=== PATIENT | male | born 1950 | race Caucasian/White ===

== ENCOUNTER 2022-04-25 00:28 | Emergency (ER) | payer MEDICARE, OTHER ==
[~2022-04-25] VITALS: Ht 177.8 cm; Wt 104.5 kg
[2022-04-25] VITALS (13 sets, daily range): BP systolic 89–145; BP diastolic 60–78
[2022-04-25] MEDS ORDERED: TOPROL XL100 MG PO (02:13)
[2022-04-25] MEDS ORDERED: XARELTO10 MG PO (02:14)
[2022-04-25] MEDS ORDERED: TAMSULOSIN HCL0.4 MG PO (02:14)
[2022-04-25] MEDS ORDERED: ATORVASTATIN CA20 MG PO (02:15)
[2022-04-25 02:18] LABS: BASO% 0.3 % (0-3); EOS% 0.7 % (0-8); HEMATOCRIT 45.7 % (39.0-50.0); HEMOGLOBIN 15.6 g/dl (14.0-18.0); IMMATURE GRANULOCYTES 0.3 % (0.0-5.0); LYMPH% 6.5 % (15-41); MEAN CELL VOLUME 92.9 fL CALC (80.0-100.0); MEAN CORPUSCULAR HGB 31.7 pG CALC (26.0-32.0); MEAN CORPUSCULAR HGB CONC 34.1 g/dL CAL (32.0-36.0); MONO% 4.9 % (2-13); NEUT# 8.98 thou/uL (1.82-7.42); NEUT% 87.3 % (42-76); RED BLOOD COUNT 4.92 mill/uL (4.70-6.10)
[2022-04-25 02:30] LABS: ALBUMIN 4.4 g/dL (3.2-5.0); ALKALINE PHOSPHATASE 98 u/l (38-126); AMYLASE 77 u/l (30-110); ANION GAP 13 (6-22 (CALC)); BILIRUBIN, TOTAL 0.8 mg/dL (0.2-1.3); BUN 22 mg/dL (8-23); BUN/CREATININE RATIO 15 (12-20 (CALC)); CARBON DIOXIDE 22 mmol/l (22-30); CHLORIDE 107 mmol/l (95-108); CREATININE 1.5 mg/dL (0.7-1.3); GFR FOR AFR.AMER. 56 ML/MIN (>=60 (CALC)); GFR OTHER RACES 46 ML/MIN (>=60 (CALC)); LIPASE 111 u/l (23-300); POTASSIUM 4.5 mmol/l (3.5-5.1); SGOT/AST 28 u/l (19-48); SODIUM 138 mmol/l (137-146); TOTAL PROTEIN 7.8 g/dL (6.3-8.2)
[2022-04-25] MEDS ORDERED: TAMSULOSIN0.4 MG PO (04:20)
[2022-04-25] MEDS ORDERED: ULTRAM50 MG PO ×2 (04:20→04:21)
[2022-04-25 04:40] LABS: URINE BILIRUBIN - DIPSTICK NEGATIVE (NEGATIVE); URINE BLOOD DIPSTICK LARGE (NEGATIVE); URINE COLOR YELLOW; URINE GLUCOSE - DIPSTICK NEGATIVE (NEGATIVE); URINE KETONE NEGATIVE (NEGATIVE); URINE PROTEIN - DIPSTICK NEGATIVE (NEG-TRACE); URINE SPECIFIC GRAVITY >=1.030; URINE UROBILINOGEN - DIPSTICK 0.2 E.U./dL (0.2)
[2022-04-25 04:43] LABS: URINE LEUK ESTERASE NEGATIVE (NEGATIVE); URINE NITRITE - DIPSTICK NEGATIVE (Negative)
[2022-04-25 04:50] LABS: URINE BACTERIA MODERATE hpf; URINE EPITHELIAL CELLS FEW EPI/hpf (0-FEW); URINE RBC 50-100 RBC/hpf (0-5)
== END 2022-04-25 05:04 | disposition home or self-care (01) ==
LOC: ED 00:28
PROVIDERS: Emergency Medicine
DX: N13.2 Hydronephrosis with renal and ureteral calculous obstruction (principal); I10 Essential (primary) hypertension; Z90.49 Acquired absence of other specified parts of digestive tract; Z93.3 Colostomy status; Z20.822 Contact with and (suspected) exposure to COVID-19